=== PATIENT | female | born 1935 | race Two or more races ===

== ENCOUNTER 2018-07-20 12:48 | Inpatient (IN) | payer MEDICARE, BC ==
[~2018-07-20] VITALS: Ht 177.8 cm; Wt 104.3 kg
[2018-07-20] MEDS ORDERED: NITROGLYCERIN PACKET 1 GM PACKET TD ONE (13:00)
[2018-07-20] MEDS ORDERED: ASPIRIN 325 MG TABLET PO ONE (13:00)
--- NOTE | 2018-07-20 13:14 | NUR ---
PT BROUGHT IN FROM DOCTORS OFF FOR C/C BIBRA 81 FROM DOCTOR'S OFFICE C/O MIDSTERNAL CP, NON RADIATING, ASA 325MG GIVEN
--- NOTE | 2018-07-20 13:19 | NUR ---
CALLED FOR BED AND TURNED IN MOVE PACKET
--- NOTE | 2018-07-20 13:53 | NUR ---
PT HARD STICK SEVERAL URSES TRIED ALONG WITH LAB ERON. HOSE INSIDE SALES ADMINISTRATOR RIDGE CALLED FOR MID-LINE INSERTION BY ULTR A SOUND PER MD WATT
[2018-07-20] MEDS ORDERED: ASPIRIN 325 MG TABLET ONE (14:49)
[2018-07-20] MEDS ORDERED: NITROGLYCERIN PACKET 1 GM PACKET ONE (14:49)
[2018-07-20] MEDS ORDERED: CLOP75TA15 PO (15:14)
[2018-07-20] MEDS ORDERED: ASPI-1169 PO (15:14)
[2018-07-20] MEDS ORDERED: ISOS30TA6 PO (15:14)
[2018-07-20] MEDS ORDERED: ASCO500T9 PO (15:14)
[2018-07-20] MEDS ORDERED: ATOR10TA PO (15:14)
[2018-07-20] MEDS ORDERED: PANT40TA4 PO (15:14)
[2018-07-20] MEDS ORDERED: OMEG1CAP55 PO (15:14)
[2018-07-20] MEDS ORDERED: METO25TA20 PO (15:14)
[2018-07-20] MEDS ORDERED: FURO-144 PO (15:14)
[2018-07-20] MEDS ORDERED: MONT10TA22 PO (15:14)
[2018-07-20] MEDS ORDERED: POTA20TA83 PO (15:14)
[2018-07-20 18:07] LABS: BASOPHILS % (AUTO) 0.3 % (0.0-2.0); EOSINOPHILS % (AUTO) 1.2 % (0.0-6.0); HEMATOCRIT 43 % (33-45); HEMOGLOBIN 14.6 g/dL (11.5-14.8); LYMPHOCYTES # (AUTO) 1.4 /CMM (0.8-4.8); LYMPHOCYTES % (AUTO) 13.2 % (20.0-44.0); MEAN CORPUSCULAR HGB CONC 34 g/dl (31.0-36.0); MEAN CORPUSCULAR VOLUME 93 fL (82-100); MONOCYTES # (AUTO) 0.8 /CMM (0.1-1.30); NEUTROPHILS # (AUTO) 8.2 /CMM (1.8-8.9); NEUTROPHILS % (AUTO) 77.3 % (43.0-81.0); PLATELET COUNT (AUTO) 252 /CMM (150-450); RED BLOOD CELL COUNT(AUTO) 4.58 MIL/uL (4.0-5.2); WHITE BLOOD COUNT (AUTO) 10.6 K/uL (4.3-11.0)
[2018-07-20 18:18] LABS: CALCIUM, SERUM 8.9 mg/dL (8.5-10.1); CARBON DIOXIDE 32 mmol/L (21-32); CHLORIDE 107 mmol/L (98-107); CREATININE 0.8 mg/dL (0.6-1.3); GLUCOSE 116 mg/dL (74-106); SODIUM SERUM 144 mmol/L (136-145); UREA NITROGEN, BLOOD 25 mg/dL (7-18)
[2018-07-20 18:23] LABS: ALANINE AMINOTRANSFERASE 22 U/L (12-78); ALBUMIN 3.1 g/dL (3.4-5.0); ALKALINE PHOSPHATASE 73 U/L (46-116); ASPARTATE AMINOTRANSFERASE 17 U/L (15-37); BILIRUBIN,DIRECT 0.2 mg/dL (0.0-0.2); BILIRUBIN,TOTAL 0.7 mg/dL (0.2-1.0); TOTAL PROTEIN, SERUM 6.9 g/dL (6.4-8.2)
[2018-07-20] MEDS ORDERED: MAGNESIUM HYDROXIDE 30 ML UDC ONE (18:52)
[2018-07-20] MEDS ORDERED: LIDOCAINE VISCOUS 2% UD 15 ML UDC ONE (18:52)
[2018-07-20] MEDS ORDERED: NITROGLYCERIN 0.4 MG/TAB BOTTLE ONE (18:54)
[2018-07-20] MEDS ORDERED: LIDOCAINE VISCOUS 2% UD 15 ML UDC MM ONE (19:00)
[2018-07-20] MEDS ORDERED: MAG HYDROX/AL HYDROX/SIMETH 30 ML UDC PO ONE (19:00)
[2018-07-20] MEDS ORDERED: NITROGLYCERIN 0.4 MG/TAB BOTTLE SL ONE (19:00)
--- NOTE | 2018-07-20 19:23 | NUR ---
CALLED FOR REPORT BUT ASKED TO CALL BACK
--- NOTE | 2018-07-20 20:16 | NUR ---
REPORT GIVEN TO OVIDIO LUBIN FOR CITLALY. WILL CALL BACK WHEN BED IS READY.
--- NOTE | 2018-07-20 20:30 | NUR ---
TELE/RN NOTES PATIENT BELONGINGS CHECK, PROVIDED ROOM ORIENTATION, ADMITING MD BANG WITH HOME MEDICATIONS REPORTED FOR RECONCILIATION , BODY CHECK WITH NO OPEN WOUND OR SKIN ISSUES. USES WALKER.
[2018-07-20 21:00] VITALS: BP 149/71
--- NOTE | 2018-07-20 21:00 | NUR ---
TELE/RN NOTES NEW ADMITTED PATIENT IS AN 82 YO FEMALE WHO WAS BROUGHT BY FAMILY FROM DR OFFICE ) EYE DR. PATIENT ALERT, ORIENTED X4, ABLE TO MAKE NEEDS KNOWN, ABLE TO TURN WITH ASSSISTANCE, USES WALKER, WEIGHT AT 230LBS, SOME PAIN OF 1/10 MID CHEST, LEFT ARM BREAST MASECTOMY AND HX OF LEFT HIP FX, WILL MONITOR.BETI SALAS ADMITTING DR, WITH DOMINGA WAS ABLE TO ORDER CARDIAC DIET PATIENT HAS NOT EATEN SINCE BREAKFAST. NO SKIN ISSUES, WILL MONITOR.
--- NOTE | 2018-07-20 21:30 | NUR ---
TELE/RN NOTES PATIENT SITTING IN THE CHAIR, PREFERED TO STAY IN CHAIR FOR COMFORT, DENIES PAIN AND REFUSE ANY PAIN MEDICATION, ON ROOM AIR, ASSISTED TO BATHROOM.
[2018-07-21] MEDS ORDERED: ONDANSETRON HCL/PF 4 MG/2 ML VIAL IVP PRN (01:00)
[2018-07-21] MEDS ORDERED: MORPHINE SULFATE INJ 2 MG/ML DISP.SYRIN IV PRN (01:00)
[2018-07-21] MEDS ORDERED: NITROGLYCERIN 0.4 MG/TAB BOTTLE SL PRN (01:00)
--- NOTE | 2018-07-21 03:51 | NUR ---
HAD EKG PER MD ORDER WITH RESULT TO INFORM MD
[2018-07-21 05:15] VITALS: BP 149/71
--- NOTE | 2018-07-21 06:43 | NUR ---
323-1 TELE/RN NOTES PATIENT SLEPT INTERMITENTLY, RESPIRATIONS EVEN AND UNLABORED IN ROOM AIR, TELE READING AT ST , PAIN CONTROLLED AND TOLERABLE, REQUIRE ASSISTANCE FOR SAFETY, USES WALKER QITH ASSISTANCE, CALL LIGHTS WITHIN REACH, BED LOCKED, CALL LIGHTS WITHIN REACH. MONITORED FOR SAFETY. WILL ENDORSE TO AM RN FOR CITLALY.
--- NOTE | 2018-07-21 07:15 | NUR ---
GAMMA OPERATOR NOTES PATIENT IN BED ALERT ORIENTED X 4. NO ACUTE DISTRESS NOTED, BREATHING UNLABORED,. NO SOB NOTED. IV ACCESS PATENT AND INTACT, NO REDNESS OR SWELLING NOTED. DENIED CHEST PAIN. SAFETY MEASURES IN PLACE, CALL LIGHT WITHIN REACH. WILL CONTINUE TO MONITOR ACCORDINGLY.
[2018-07-21] MEDS ORDERED: CARVEDILOL 6.25 MG TABLET PO SCH ×2 (09:00)
[2018-07-21] MEDS ORDERED: CARVEDILOL 12.5 MG TABLET PO SCH (09:00)
[2018-07-21] MEDS ORDERED: VALSARTAN 80 MG TABLET PO SCH (09:00)
[2018-07-21] MEDS ORDERED: CLOPIDOGREL BISULFATE 75 MG TABLET PO SCH ×2 (09:00→12:00)
[2018-07-21] MEDS ORDERED: ASPIRIN 81 MG TAB.CHEW PO SCH ×2 (09:00→12:00)
[2018-07-21] MEDS ORDERED: CT SWABBABLE VALVE TRANS SET 1 EA INFUS.SET MC ONE (11:56)
[2018-07-21] MEDS ORDERED: IOHEXOL-350 100 ML VIAL IV ONE ×2 (11:56→14:42)
[2018-07-21] MEDS ORDERED: IV NS 0.9% 250 ML IV ONE (11:59)
[2018-07-21] MEDS: MONTELUKAST SODIUM (10MG) 10 MG TABLET PO SCH ×2 (12:00→18:00)
[2018-07-21] MEDS ORDERED: OMEGA ACID ETHYL ESTERS PO SCH (12:00)
[2018-07-21] MEDS ORDERED: METOPROLOL TARTRATE 25 MG TABLET PO SCH (12:00)
[2018-07-21] MEDS ORDERED: ATORVASTATIN 10 MG TABLET PO SCH (12:00)
[2018-07-21] MEDS ORDERED: FUROSEMIDE 40 MG TABLET PO SCH (12:00)
[2018-07-21] MEDS ORDERED: POTASSIUM CHLORIDE 20 MEQ TAB.PRT.SR PO SCH (12:00)
[2018-07-21] MEDS ORDERED: ISOSORBIDE MONONITRATE (30MG) 30 MG TAB.SR.24H PO SCH (12:00)
[2018-07-21] MEDS ORDERED: PANTOPRAZOLE 40 MG TABLET.DR PO SCH (12:00)
[2018-07-21] MEDS ORDERED: NITROGLYCERIN 0.4 MG/TAB BOTTLE ONE (12:28)
[2018-07-21] MEDS ORDERED: METOPROLOL TARTRATE INJ 5 MG/5 ML AMPUL ONE ×2 (12:28→13:10)
--- NOTE | 2018-07-21 12:31 | NUR ---
INTEGRITY ANALYST NOTES PATIENT TAKEN DOWN FOR CT IN STABLE CONDITION AT 1215.
[2018-07-21] MEDS ORDERED: HYDROMORPHONE INJ 2 MG/ML DISP.SYRIN IV STA (13:29)
--- NOTE | 2018-07-21 13:30 | NUR ---
ICU/RN NOTE: Pt in severe lower back pain, morphine dose (administered 1300) as ordered ineffective. Dr Santa notified with orders for Dilaudid 2mg IVP. Will reassess accordingly.
--- NOTE | 2018-07-21 14:25 | NUR ---
CLAIMS ADJUSTER NOTES CAME BACK FROM CTA WITH STABLE VITAL SIGNS. PATIENT ALERT ORIENTED X4. NO ACUTE DISTRESS NOTED.
--- NOTE | 2018-07-21 14:30 | NUR ---
ICU/RN: S/P CTA - pain management effective; pt with periods of nausea, endorsed to f/u antiemetics to primary RN. Last set of vital signs obtained from datascope 138/82, HR 68. Pt on O2 2L/min via NC. Family at bedside, educated. Safety measures in place.
--- NOTE | 2018-07-21 14:53 | NUR ---
CAREER TRANSITION SPECIALIST NOTES PATIENT TAKEN DOWN FOR CTA AGAIN IN STABLE CONDITION.
--- NOTE | 2018-07-21 15:15 | NUR ---
APPLIANCE FIXER NOTES CAME BACK FROM CTA WITH STABLE VITAL SIGNS. PATIENT ALERT ORIENTED X4. NO ACUTE DISTRESS NOTED.
[2018-07-21 16:00] VITALS: BP 134/66
--- NOTE | 2018-07-21 17:09 | NUR ---
MS RN NOTES SPOKE WITH SINDHU PRINGLE, AWARE OF CTA RESULT, PATIENT CLEARED TO GO HOME, PATIENT NEEDS TO FOLLOW UP WITH CARDIOLOGY.
--- NOTE | 2018-07-21 19:15 | NUR ---
MS RN NOTES PATIENT DISCHARGE HOME WITH STABLE VITAL SIGNS, ALERT ORIENTED X 3. NO ACUTE DISTRESS NOTED. BREATHING UNLABORED. IV ACCESS REMOVED, NO BLEEDING, NO REDNESS, NO SWELLING NOTED, SECURED WITH GAUZE AND TRANSPARENT DRESSING, TIP OF CATHETER INTACT. NEEDS ATTENDED AND ANTICIPATED. DISCHARGE INSTRUCTIONS GIVEN INCLUDING FOLLOW UP WITH CARDIOLOGY AND PRIMARY DOCTOR, VERBALIZED UNDERSTANDING. ALL BELONGINGS ACCOUNTED FOR. WHEELED TO THE LOBBY, ASSISTED TO A PRIVATE CAR, PICKED UP BY DAUGHTER VIA PRIVATE CAR IN STABLE CONDITION.
[2018-07-22] MEDS ORDERED: METOPROLOL TARTRATE 25 MG TABLET PO SCH (09:00)
== END 2018-07-21 19:15 | disposition home or self-care (01) | DRG 206 ==
LOC: ER 12:50 → TELE 20:08 → MED 07-21 08:55
PROVIDERS: ADMIT Internal Medicine; ATTEND Internal Medicine
PROC: 05H533Z Insertion of Infusion Device into Right Subclavian Vein, Percutaneous Approach (ICD-10-PCS; principal; 2018-07-20)
PROC: B546ZZA Ultrasonography of Right Subclavian Vein, Guidance (ICD-10-PCS; 2018-07-20)
DX: M94.0 Chondrocostal junction syndrome [Tietze] (principal); I20.0 Unstable angina; I11.9 Hypertensive heart disease without heart failure; I27.20 Pulmonary hypertension, unspecified; Z85.3 Personal history of malignant neoplasm of breast; E66.01 Morbid (severe) obesity due to excess calories; Z86.73 Personal history of transient ischemic attack (TIA), and cerebral infarction without residual deficits; I35.0 Nonrheumatic aortic (valve) stenosis
CPT/HCPCS: 36415; 71045-TC; 75574; 80048-TC; 80076-TC; 84484-TC; 85025-TC; 85730-TC; 87081-TC; 93307-TC; A6403; C1751; G0378; J1170; J2270; J2405; J3490; J7050; Q9967